=== PATIENT | male | born 1945 | race Caucasian/White ===

== ENCOUNTER 2021-11-01 13:26 | Emergency (ER) | payer MEDICARE, OTHER ==
[2021-11-01] MEDS ORDERED: Sodium Chloride 0.9% 10 ML Syringe FLUSH PRN (13:44)
[2021-11-01] MEDS ORDERED: Furosemide 40 MG/4 ML VIAL IV ONE (13:45)
[2021-11-01 14:34] LABS: CHLORIDE,CL 98 mmol/L (98-107); SODIUM,NA 140 mmol/L (136-145)
[2021-11-01 14:35] LABS: ANION GAP 10.4 mmol/L (5-15)
[2021-11-01 15:55] VITALS: BP 129/80
[2021-11-01 16:36] VITALS: PULSE 79
== END 2021-11-01 16:40 | disposition short-term general hospital (02) ==
LOC: VM.ED 13:26
DX: J96.01 Acute respiratory failure with hypoxia (principal); I11.0 Hypertensive heart disease with heart failure; I50.43 Acute on chronic combined systolic (congestive) and diastolic (congestive) heart failure; E87.70 Fluid overload, unspecified; R06.03 Acute respiratory distress; Z20.822 Contact with and (suspected) exposure to COVID-19
CPT/HCPCS: 36415; 71045; 80053; 82550; 83880; 84484; 85025; 93005; 93010; 94760; 96374; 99284; 99285-25; J1940; U0002